=== PATIENT | male | born 1965 | race Caucasian/White ===

== ENCOUNTER → 2024-01-01 | Outpatient (CLI) | payer BC ==
[2024-01-01 13:34] LABS: Partial Thromboplastin Time 23.7 sec (22.0-30.0)
[2024-01-01 16:20] LABS: INR 0.9 (<1.2); Prothrombin Time 10.1 sec (10.0-12.5)
[2024-01-01 17:05] LABS: ALT 13 U/L (10-49); AST 14 U/L (14-35); Albumin 4.7 g/dL (3.8-4.9); Albumin/Globulin Ratio 2.35 Ratio (1.60-3.17); Alkaline Phosphatase 73 U/L (41-126); BUN/Creat Ratio 25.85 Ratio (12.00-20.00); Blood Urea Nitrogen 33.6 mg/dL (9.0-27.0); Calcium 10.1 mg/dL (8.7-10.3); Carbon Dioxide 26.3 mmol/L (21.6-31.8); Chloride 104 mmol/L (96-109); Glucose 99 mg/dL (70-110); Potassium 4.7 mmol/L (3.5-5.5); Sodium 140 mmol/L (135-145); Total Bilirubin 0.4 mg/dL (0.3-1.2); Total Protein 6.7 g/dL (6.2-8.2)
== END | disposition home or self-care (01) ==
LOC: LABPAT 11:31
PROVIDERS: ATTEND Orthopaedic Surgery
DX: Z01.818 Encounter for other preprocedural examination (principal); Z22.322 Carrier or suspected carrier of Methicillin resistant Staphylococcus aureus
CPT/HCPCS: 80053; 83036; 85027; 85610; 85730; 87070; 93005

== ENCOUNTER → 2024-01-01 | Outpatient (CLI) | payer BC ==
--- NOTE | 2024-01-04 11:56 | CT ---
EXAMINATION TYPE: CT left knee - CHRISTIANNE Protocol CT DLP: 904 mGycm, Automated exposure control for dose reduction was used. DATE OF EXAM: 01/01/2024 11:27 AM COMPARISON: None CLINICAL INDICATION:Male, 58 years old with history of [id number] UNILATERAL PRIMARY OSTEOARTHRITIS, LEFT KNEE; PHH, left christianne knee TECHNIQUE: Axial images were obtained of the CT left knee - CHRISTIANNE Protocol, Additional coronal and sag ittal reformatted images and soft tissue and bone window were obtained for review. Contrast used: mL of , (None if empty) Oral contrast used: (None if empty) FINDINGS: The visualized portion of the hips demonstrate mild osteoarthrosis changes with osteophyte formation of the acetabulum. No acute intrapelvic process. The bony structures of the pelvis are intact. The visualized knee demonstrates osteophyte formation of the tibial plateau, the patella and femoral condyles. There is a large joint effusion present. There is joint space narrowing and subchondral sc lerosis and subchondral cystic change most pronounced medially. No evidence of fracture. Visualized ankle demonstrates multifocal osteoarthrosis changes with osteophyte formation and joint s pace narrowing. No evidence of fractures. Fat-containing inguinal hernias bilaterally. IMPRESSION: End-stage osteoarthrosis changes of the left knee.
== END | disposition home or self-care (01) ==
LOC: RADCTMAIN 10:41
PROVIDERS: ATTEND Orthopaedic Surgery
DX: M17.12 Unilateral primary osteoarthritis, left knee (principal); M25.462 Effusion, left knee

== ENCOUNTER 2024-01-24 11:35 | Day surgery (SDC) | payer BC ==
[~2024-01-24 11:35] MED LIST: TRANEXAMIC 1,000 MG/100ML-NACL 1,000 MG in SALINE 1 100ML.BAG IV PRN; TRANEXAMIC 1,000 MG/100ML-NACL 1,000 MG in SALINE 1 100ML.BAG IVPB PRN
[2024-01-24] MEDS ORDERED: LIDOCAINE 1% (10MG/ML) FOR IV START INTRADERMA PRN (12:07)
[2024-01-24] MEDS: ACETAMINOPHEN TAB 500 MG TAB PO PRN (12:45)
[2024-01-24] MEDS: oxyCODONE ER 10 MG TAB.ER.12H PO PRN (12:45)
[2024-01-24] MEDS: DOCUSATE 100 MG CAP PO PRN (12:45)
[2024-01-24] MEDS: MIDAZOLAM 2 MG/2 ML VIAL IVP ONE (12:48)
[2024-01-24 12:50] LABS: Basophils % (A) 0 %; Eosinophils # (A) 0.1 k/uL (0-0.7); Eosinophils % (A) 1 %; HCT 44.6 % (39.0-53.0); HGB 13.9 gm/dL (13.0-17.5); Lymphocytes # (A) 1.1 k/uL (1.0-4.8); Lymphocytes % (A) 13 %; MCH 30.6 pg (25.0-35.0); MCHC 31.2 g/dL (31.0-37.0); MCV 98.1 fL (80.0-100.0); Mean Platelet Volume 7.7; Monocytes # (A) 0.4 k/uL (0-1.0); Monocytes % (A) 4 %; Neutrophils # (A) 7.3 k/uL (1.3-7.7); Neutrophils % (A) 80 %; Platelet Count 352 k/uL (150-450); RBC 4.54 m/uL (4.30-5.90); RDW 13.1 % (11.5-15.5); WBC 9.1 k/uL (3.8-10.6)
[2024-01-24] MEDS: LACTATED RINGERS 1,000 ML IV SCH (12:52)
[2024-01-24] MEDS: FAMOTIDINE 20 MG/2 ML VIAL IVP PRN (12:53)
[2024-01-24] MEDS: ONDANSETRON 4 MG/2 ML VIAL IVP PRN (12:54)
[2024-01-24] MEDS: DEXAMETHASONE SOD PHOSPHATE 10 MG/ML 1 ML VIAL IV PRN (12:54)
[2024-01-24] MEDS: KETOROLAC 15 MG/ML 1 ML VIAL IVP PRN (12:54)
[2024-01-24] MEDS ORDERED: PROPOFOL 10 MG/ML 20 ML VIAL IV ONE (13:05)
[2024-01-24] MEDS ORDERED: NEOSTIGMINE 1 MG/ML 10 ML VIAL ONE (13:05)
[2024-01-24] MEDS ORDERED: ROCURONIUM 10 MG/ML (5 ML VIAL) IV ONE (13:05)
[2024-01-24] MEDS ORDERED: HYDROmorphone (PF) 1 MG/ML ONE (13:05)
[2024-01-24] MEDS ORDERED: TRANEXAMIC 1,000 MG/100ML-NACL PREMIX BAG ONE (13:05)
[2024-01-24] MEDS ORDERED: GLYCOPYRROLATE 0.2 MG/ML 2 ML VIAL ONE (13:05)
[2024-01-24] MEDS ORDERED: SUCCINYLCHOLINE CHLORIDE 200 MG/10 ML VIAL IV ONE (13:05)
[2024-01-24] MEDS ORDERED: fentaNYL (PF) 50 MCG/ML 2 ML AMP ONE (13:05)
[2024-01-24] MEDS ORDERED: PHENYLEPHRINE-0.9% NACL SYG 1,000 MCG/10 ML SYRINGE ONE (13:05)
[2024-01-24] MEDS ORDERED: MIDAZOLAM 2 MG/2 ML VIAL ONE (13:05)
[2024-01-24] MEDS ORDERED: LIDOCAINE 1% INJ 10MG/ML (20 ML MDV) ONE (13:05)
[2024-01-24] MEDS ORDERED: ROPIVACAINE 5 MG/ML 30 ML VIAL ONE (13:05)
[2024-01-24] MEDS ORDERED: DEXAMETHASONE SOD PHOSPHATE 4 MG/ML 1 ML VIAL ONE (13:05)
[2024-01-24] MEDS: ceFAZolin 3 GM in SODIUM CHLORIDE 0.9% 100 ML IVPB PRN (13:07)
[2024-01-24] MEDS: ROPIVACAINE/EPI/CLONIDINE/KET 50 ML SYRINGE MISCELLANE PRN (13:35)
[2024-01-24] MEDS: LACTATED RINGERS 1,000 ML IV ONE (14:24)
[2024-01-24] MEDS: VANCOMYCIN 1,000 MG VIAL MISCELLANE ONE (14:32)
--- NOTE | 2024-01-24 15:30 | P.OP ---
Date of Procedure: 01/24/24 Preoperative Diagnosis: severe left knee osteoarthritis Postoperative Diagnosis: same Procedure(s) Performed: 1. Left total knee arthroplasty 2. Computer assisted musculoskeletal navigation using CT/MRI images 3. Application of negative pressure incision over wound VAC left knee, less than 50 cm, incision 15 cm Implants: 1. [place] [employer] CR Femur Size #5 2. Alejandra [employer]lon [place] Tibial Base Size #5 3. Alejandra Triathlon CS poly Size #10 4. Alejandra Triathlon all poly patella, Size #35 Anesthesia: SILVIANO, regional Surgeon: Wai Arriaza Teacher Of The Hearing Impaired #1: Jovany Woody Estimated Blood Loss (ml): 100 IV fluids (ml): 800 Pathology: none sent Condition: stable Disposition: PACU Indications for Procedure: I met with the patient preoperatively in the office setting and discussed treatment of their symptomatic knee arthritis. They failed a long course of nonsurgical treatment and elected to proceed with an elective total knee replacement. I discussed the potential risks and complications at length and gave them ample time to ask questions. Risks discussed included: risks from anesthesia, superficial site surgical infection, acute and/or chronic periprosthetic joint infection, delayed wound healing, drainage, wound necrosis, instability, stiffness, stiffness requiring manipulation and/or revision surgery, damage to local blood vessels or nerves, aseptic loosening of the implants, extensor mechanism issues including disruption, patellar maltracking, avascular necrosis etc., continued or worsened knee pain, generalized dissatisfaction with surgical outcome, need for revision surgery, an inability to regain preinjury level of function, DVT, PE, other medical complications, and possibly loss of life or limb. The patient voiced their understanding that while these are the most common complications other less common complications are possible. They provided both their verbal and written consent to go forward with surgery. Operative Findings: severe tricompartmental osteoarthritis, relatively poor bone quality, large clear blood-tinged effusion Description of Procedure: The patient was identified in preoperative holding and the correct operative extremity was verified and marked with a marker. I reviewed the consent form with the patient at length. All of their questions were answered. The patient was given a block by anesthesia. They were then brought back to the operating room. They were transferred onto the operating room table where a general anesthetic, preoperative antibiotics, and tranexamic acid were administered by anesthesia. A tourniquet was applied to the proximal aspect of the operative extremity. The contralateral extremity was padded under the heel and secured to the operating room table with a nonsterile blue towel and tape. The ipsilateral arm was carefully draped across the patient's chest and secured with a pillow and foam. A post was applied over the lateral aspect of the ipsilateral thigh and a bolster was placed under the ipsilateral foot. I verified that the operative extremity was stable and the knee was flexed to 90. The operative extremity was then placed in a leg carrasquillo, nonsterile drapes were applied, and the extremity was prepped and draped sterilely in the standard sterile fashion. Prior to starting surgery timeout was performed identifying the correct patient, operative extremity, and procedure. The leg was then elevated, exsanguinated with an Esmarch bandage, and the tourniquet was inflated. An anterior midline incision was made sharply with a scalpel. Once I had dissected deep to the superficial fascial layer medial and lateral flaps were elevated. A medial parapatellar arthrotomy was created. Upon opening the knee joint there were diffuse arthritic changes in all 3 compartments. The anterior horn of the medial meniscus were sharply released and a medial release was performed around the posterior medial corner of the knee to facilitate retractor placement. The fat pad was excised with electrocautery. The patella was found to be severely arthritic and a provisional cut was made with a sagittal saw to facilitate mobilization of the extensor mechanism during the procedure. Remnants of the ACL and PCL were then excised from the notch. 4 mm pins were then placed within the incision in the medial distal femur and proximal tibia. Arrays were applied to the pins and I verified they were completely tightened. The knee was then registered with the LoggedIn robot and manipulations in implant position were made to balance the knee and opitmize implant position. Using the Daniel robotic saw all cuts were made in accordance with our plan. After all bony fragments had been removed the cuts were verified with the planar probe. The tibia was then subluxed forward and sized. The knee was brought into flexion and a lamina rework operator was placed to allow removal of the meniscal remnants both medially and laterally as well as posterior osteophytes. Local anesthetic was then infiltrated around the joint capsule. Trial implants were then placed within the knee. Range of motion and collateral ligament tension was then evaluated. Adjustments in implant size and position were then made accordingly. Once the knee was felt to be appropriately balanced the Daniel pins were removed. The patella was then recut, sized, and punched. A trial patellar button was then placed. With the trial components in place, the patella tracked midline. The femur was then drilled and the trial component removed. The trial tibial component was then appropriately rotated, pinned, and prepared for the keel. All trial components were then removed from the knee. The knee was thoroughly irrigated with pulsatile lavage. Cement was prepared via vacuum mixing in a bowl on the back table. I then hand pressurized cement into the femur and tibia and placed the implants beginning with the tibial base tray and poly liner, femoral component, and finally the patellar button. All extruded cement was removed including from the pin sites. Once the cement had hardened the knee was evaluated one final time with the final polyethylene liner in place. The knee had full extension and flexion and felt stable to varus and valgus stress throughout the arc of motion. The tourniquet was released and with the tourniquet down the patella tracked midline. All bleeders were controlled with electrocautery. The knee was then soaked for 3 minutes with a dilute Betadine soak. The knee was thoroughly irrigated using 3 L of sterile saline and pulsat ile lavage. A deep drain was placed. The extensor mechanism was then reapproximated using pop off Vicryl sutures followed by a running barbed suture. The knee was then closed in layers with a 0 strata fix for the deep fascial layer, 2-0 strata fix for the superficial subcutaneous layer and Monocryl and Steri-Strips for the skin. An incisional wound VAC was placed over the closed incision to help lower the risk of delayed wound healing and surgical site infection. A drain sponge was also applied. After connecting the wound VAC to it's power source, there was an excellent seal. I verified that all instrument, sponge, and sharp counts were correct. The patient was then transferred off the operating room table, extubated, and brought to recovery having tolerated the procedure well. Alan Woody PA-C was required as a skilled certified physician assistant due to the complexity of surgery for patient positioning, draping, exposure, retraction, closure of wound, and application of dressing. PLAN: The patient can weight-bear as tolerated on the operative extremity. DVT prophylaxis with aspirin 81 mg twice a day based on preoperative risk stratification. The patient is going to be discharged home on doxycycline 100 mg twice a day until his incision heals. Follow-up in the office in 2 weeks for wound check and x-rays of the knee including an AP and lateral.
[2024-01-24] MEDS ORDERED: NALOXONE 0.4 MG/ML 1 ML VIAL IV PRN (15:32)
[2024-01-24] MEDS ORDERED: ONDANSETRON 4 MG/2 ML VIAL IVP PRN (15:32)
[2024-01-24] MEDS ORDERED: HYDROcodone/APAP 5-325MG 1 EACH TAB PO PRN (15:32)
[2024-01-24] MEDS ORDERED: bisacodyL 10 MG SUPP RECTAL PRN (15:32)
[2024-01-24] MEDS ORDERED: MAGNESIUM HYDROXIDE 2,400 MG/30 ML CUP PO PRN (15:32)
[2024-01-24] MEDS ORDERED: NA PHOS,M-B/NA PHOS,DI-BA 133 ML ENEMA RECTAL PRN (15:32)
[2024-01-24] MEDS: HYDROmorphone 0.5 MG/0.5 ML SYRINGE IVP PRN (15:51)
--- NOTE | 2024-01-24 16:29 | XR ---
EXAMINATION TYPE: XR knee limited LT DATE OF EXAM: 01/24/2024 COMPARISON: None HISTORY: Post knee replacement TECHNIQUE: 2 view left knee FINDINGS: There is placement of the left knee prosthesis with tibial and femoral components. Postsurg ical soft tissue changes are evident. No acute fractures are evident. IMPRESSION: 1. No acute fracture post knee replacement.
[2024-01-24] MEDS: SODIUM CHLORIDE 0.9% 1,000 ML IV SCH (17:26)
[2024-01-24] MEDS: HYDROcodone/APAP 10-325MG 1 EACH TAB PO PRN (18:33)
[2024-01-24] MEDS: HYDROmorphone 1 MG/ML 1 ML SYRINGE IVP PRN (19:43)
[2024-01-24] MEDS: ASPIRIN 81 MG PO SCH (21:27)
[2024-01-24] MEDS: SENNOSIDES-DOCUSATE SODIUM 1 EACH TAB PO SCH (21:28)
[2024-01-25] MEDS: oxyCODONE-APAP 10-325MG 1 EACH TAB PO PRN (01:05)
[2024-01-25] MEDS: hydrOXYzine pamoate 25 MG CAP PO PRN (02:11)
[2024-01-25] MEDS ORDERED: ACETAMINOPHEN TAB 500 MG TAB PO PRN (04:37)
--- NOTE | 2024-01-25 04:40 | P.CONS ---
History of Present Illness - Reason for Consult Consult date: 01/25/24 Postoperative medical management - Chief Complaint Left knee pain - History of Present Illness 58-year-old male with hypertension Patient coming in for scheduled left total knee replacement due to advanced arthritis limiting activities of daily living patient tolerated procedure well no observed immediate postoperative complications denies any chest pain trouble breathing nausea vomiting fever chills. Patient tolerated procedure well patient was able to ambulate with assistance patient has passed urine with no problems or difficulties. Patient tolerating p.o. intake. Currently reports t hat his pain not well-controlled and he is asking to switch his Tow[place]'s to Percocet maximum dose which she took in the past. Patient denies tobacco smoking illicit drugs or heavy alcohol review of systems Pertinent positives as noted in HPI. All other systems were reviewed and are negative on exam Constitutional: No acute distress, conversant, pleasant Eyes: Anicteric sclerae, moist conjunctiva, Pupils equal round reactive to light ENMT: NC/AT Oropharynx clear, no erythema, or exudates Neck: Supple, no masses, or JVD No carotid bruits No thyromegaly Lungs: Clear to auscultation Clear to percussion Normal respiratory effort, no accessory muscle use Cardiovascular: Heart regular in rate and rhythm, No murmurs, gallops, or rubs No peripheral edema Abdominal: Soft Nontender, no guarding, rebound or rigidity Abdomen moving with respiration Normoactive bowel sounds Extremities: No digital cyanosis No clubbing Pedal pulses intact and symmetrical Radial pulses intact and symmetrical No calf tenderness Psychiatric: Alert and oriented to person, place and time Appropriate affect fair judgement Neuro Muscles Strength 5/5 in all 4 extremities with limitations of exam of left lower extremity due to postop Sensation to light touch grossly present throughout Cranial nerves II-XII grossly intact Past Medical History Past Medical History: Hypertension, Osteoarthritis (OA) Additional Past Medical History / Comment(s): RLS History of Any Multi-Drug Resistant Organisms: None Reported Past Surgical History: Hernia Repair, Orthopedic Surgery Additional Past Surgical History / Comment(s): umbilical hernia repair, right elbow surg. Past Anesthesia/Blood Transfusion Reactions: Postoperative Nausea & Vomiting (PONV) Past Psychological History: Anxiety, Depression Smoking Status: Former smoker Past Alcohol Use History: None Reported Additional Past Alcohol Use History / Comment(s): quit smoking 25-30 yrs. ago, smoked 9 yrs. 1ppd Past Drug Use History: None Reported - Past Family History Mother Family Medical History: No Reported History Medications and Allergies Home Medications Medication Instructions Recorded Confirmed Type Acetaminophen [Tylenol Extra 500 mg PO Q4H PRN 01/22/24 01/22/24 History Strength] Diclofenac Sodium [Voltaren] 75 mg PO BID 01/22/24 01/22/24 History Ibuprofen [Motrin Ib] 200 - 400 mg PO Q6H PRN 01/22/24 01/22/24 History Irbesartan/Hydrochlorothiazide 1 each PO DAILY 01/22/24 01/22/24 History [Irbesartan-Hctz 300-12.5 mg Tb] Magnesium Gluconate [Magonate] 250 mg PO HS 01/22/24 01/22/24 History Potassium Gluconate 99 mg PO DAILY 01/22/24 01/22/24 History Venlafaxine HCl [Effexor XR] 150 mg PO DAILY 01/22/24 01/22/24 History allopurinoL [Zyloprim] 300 mg PO DAILY 01/22/24 01/22/24 History diphenhydrAMINE [Benadryl] 50 mg PO HS PRN 01/22/24 01/22/24 History rOPINIRole HCL [Requip] 0.25 mg PO HS 01/22/24 01/22/24 History tadalafiL [Cialis] 20 mg PO DIRECTED PRN 01/22/24 01/22/24 History Aspirin 81 mg PO BID #60 tab 01/24/24 Rx Diclofenac Sodium [Voltaren] 75 mg PO BID #60 tab 01/24/24 Rx Docusate [Colace] 100 mg PO BID #28 capsule 01/24/24 Rx Doxycycline Monohydrate 100 mg PO BID #28 cap 01/24/24 Rx Omeprazole 40 mg PO DAILY #30 cap 01/24/24 Rx Allergies Allergy/AdvReac Type Severity Reaction Status Date / Time erythromycin base Allergy Rash/Hives Verified 01/24/24 12:07 tetracycline Allergy Rash/Hives Verified 01/24/24 12:07 Physical Exam Vitals: Vital Signs Temp Pulse Pulse Resp BP Pulse Ox 01/25/24 02:44 97.5 F L 93 20 116/60 97 01/24/24 19:01 97.5 F L 103 H 20 158/83 96 01/24/24 17:18 99 18 135/67 93 L 01/24/24 16:34 95 18 116/58 99 01/24/24 16:25 91 18 128/61 95 01/24/24 16:09 96 16 132/60 96 01/24/24 15:53 98 16 124/58 98 01/24/24 15:37 96 14 125/61 95 01/24/24 15:21 97.0 F L 95 16 126/57 97 01/24/24 12:57 99 16 134/62 96 01/24/24 12:19 97.0 F L 115 H 16 161/71 98 Intake and Output 01/24/24 01/24/24 01/25/24 14:59 22:59 06:59 Intake Total 1400 300 750 Output Total 100 Balance 1400 200 750 Intake: IV 1400 300 Oral 750 Output: Estimated Blood Loss 100 Other: # Voids 0 3 Weight 117 kg 117 kg Results CBC & Chem 7: 01/24/24 12:36 Assessment and Plan Assessment: Hypertension controlled Continue home blood pressure medications Left total knee arthroplasty postoperative day 1 Pain control DVT prophylaxis per primary team Patient overall stable from medical standpoint Check CBC and BMP in the morning Thank you for this consultation
--- NOTE | 2024-01-25 07:45 | P.DS ---
Providers Date of admission: Saturday01/24/2024 Attending physician: Wai Arriaza Consults: 01/24/24 15:32 Consult Physician Routine Consulting Provider: Della Colin Consult Reason/Comments: post op medical management Do you want consulting provider notified?: Yes Primary care physician: Stated None Hospital Course: The patient is a very pleasant 58-year-old male who is admitted under my care and was taken to the operating room yesterday for a total knee replacement. Following an uncomplicated surgery the patient was transferred to the orthopedic floor. He was transitioned from IV to oral pain medications. He was given 2 doses of postoperative antibiotics. He was started on aspirin for DVT prophylaxis. Internal medicine was consulted for perioperative medical management. I saw the patient on postoperative day #1 and he was doing well. The incisional wound VAC over his knee was intact with good seal. He had mild swelling throughout the knee. He was able to actively plantarflex and dorsiflex his ankle and his toes. He worked with physical therapy. He did well and requested to be discharged home on postoperative day #1. Plan - Discharge Summary Discharge Rx Participant: Yes New Discharge Prescriptions: New Omeprazole 40 mg PO DAILY #30 cap oxyCODONE HCL/ACETAMINOPHEN [Percocet 10-325 mg] 1 tab PO Q6HR PRN #32 tab PRN Reason: Pain Aspirin 81 mg PO BID #60 tab Diclofenac Sodium [Voltaren] 75 mg PO BID #60 tab Doxycycline Monohydrate 100 mg PO BID #28 cap Docusate [Colace] 100 mg PO BID #28 capsule No Action rOPINIRole HCL [Requip] 0.25 mg PO HS diphenhydrAMINE [Benadryl] 50 mg PO HS PRN PRN Reason: sleeping tadalafiL [Cialis] 20 mg PO DIRECTED PRN PRN Reason: E.D. Venlafaxine HCl [Effexor XR] 150 mg PO DAILY Potassium Gluconate 99 mg PO DAILY Irbesartan/Hydrochlorothiazide [Irbesartan-Hctz 300-12.5 mg Tb] 1 each PO DAILY Ibuprofen [Motrin Ib] 200 - 400 mg PO Q6H PRN PRN Reason: Pain Acetaminophen [Tylenol Extra Strength] 500 mg PO Q4H PRN PRN Reason: Pain Magnesium Gluconate [Magonate] 250 mg PO HS allopurinoL [Zyloprim] 300 mg PO DAILY Diclofenac Sodium [Voltaren] 75 mg PO BID Discharge Medication List Acetaminophen [Tylenol Extra Strength] 500 mg PO Q4H PRN 01/22/24 [History] Diclofenac Sodium [Voltaren] 75 mg PO BID 01/22/24 [History] Ibuprofen [Motrin Ib] 200 - 400 mg PO Q6H PRN 01/22/24 [History] Irbesartan/Hydrochlorothiazide [Irbesartan-Hctz 300-12.5 mg Tb] 1 each PO DAILY 01/22/24 [History] Magnesium Gluconate [Magonate] 250 mg PO HS 01/22/24 [History] Potassium Gluconate 99 mg PO DAILY 01/22/24 [History] Venlafaxine HCl [Effexor XR] 150 mg PO DAILY 01/22/24 [History] allopurinoL [Zyloprim] 300 mg PO DAILY 01/22/24 [History] diphenhydrAMINE [Benadryl] 50 mg PO HS PRN 01/22/24 [History] rOPINIRole HCL [Requip] 0.25 mg PO HS 01/22/24 [History] tadalafiL [Cialis] 20 mg PO DIRECTED PRN 01/22/24 [History] Aspirin 81 mg PO BID #60 tab 01/24/24 [Rx] Diclofenac Sodium [Voltaren] 75 mg PO BID #60 tab 01/24/24 [Rx] Docusate [Colace] 100 mg PO BID #28 capsule 01/24/24 [Rx] Doxycycline Monohydrate 100 mg PO BID #28 cap 01/24/24 [Rx] Omeprazole 40 mg PO DAILY #30 cap 01/24/24 [Rx] oxyCODONE HCL/ACETAMINOPHEN [Percocet 10-325 mg] 1 tab PO Q6HR PRN #32 tab 01/25/24 [Rx] Follow up Appointment(s)/Referral(s): Wai Arriaza MD [Medical Doctor] - 2 Weeks Activity/Diet/Wound Care/Special Instructions: 1. Weight-bear as tolerated on your operative extremity unless instructed otherwise. Use a walker or other assistive device to ambulate. 2. Leave surgical dressing in place. If your dressing becomes saturated with blood, there is drainage, or the dressing becomes loose please contact the office. 3. It is okay to shower with your surgical dressing, but do not submerge in water (no hot tubs, bath's, swimming etc.) 4. Make sure to take her blood clot prevention medication as prescribed (aspirin, Eliquis, Xarelto, and Plavix are commonly prescribed medications for blood clot prevention) 5. While taking [place] or Percocet for pain make sure you're taking a stool softener (Colace) and drink lots of water. 6. Keep all follow-up appointments as scheduled. You will usually be seen in 1-2 weeks following surgery. 7. Please contact the office with any questions or concerns [phone] Discharge Disposition: HOME WITH HOME HEALTH SERVICES
[2024-01-25 08:13] VITALS: BP 146/84; PULSE 74; RESP 18; TEMP 98.1
[2024-01-25] MEDS: LOSARTAN 50 MG TAB PO SCH (09:13)
[2024-01-25] MEDS: VENLAFAXINE HCL ER 150 MG CAP PO SCH (09:14)
[2024-01-25] MEDS: MELOXICAM 7.5 MG TAB PO SCH (09:14)
[2024-01-25] MEDS: allopurinoL 300 MG TAB PO SCH (09:16)
[2024-01-25 09:24] LABS: Basophils % (A) 0 %; Eosinophils % (A) 0 %; HCT 37.9 % (39.0-53.0); HGB 11.9 gm/dL (13.0-17.5); Lymphocytes # (A) 0.6 k/uL (1.0-4.8); Lymphocytes % (A) 4 %; MCH 31.3 pg (25.0-35.0); MCHC 31.3 g/dL (31.0-37.0); Mean Platelet Volume 8.5; Monocytes # (A) 0.6 k/uL (0-1.0); Monocytes % (A) 4 %; Neutrophils # (A) 13.7 k/uL (1.3-7.7); Neutrophils % (A) 92 %; Platelet Count 313 k/uL (150-450); RBC 3.79 m/uL (4.30-5.90); RDW 13.3 % (11.5-15.5)
[2024-01-25 09:54] LABS: African American GFR (CKD) 80 (>60 ml/min/1.73 sqM); Anion Gap 11 mmol/L; Blood Urea Nitrogen 33 mg/dL (9-20); Calcium 9.3 mg/dL (8.4-10.2); Carbon Dioxide 22 mmol/L (22-30); Chloride 104 mmol/L (98-107); Glucose 182 mg/dL (74-99); Non-African American GFR(CKD) 69 (>60 ml/min/1.73 sqM); Potassium 4.4 mmol/L (3.5-5.1); Sodium 137 mmol/L (137-145)
[2024-01-25] MEDS: hydroCHLOROthiazide 12.5 MG CAP PO SCH (10:55)
--- NOTE | 2024-01-25 13:59 | P.PN ---
Subjective Progress Note Date: 01/25/24 Hospital course: Patient is a very pleasant 58-year-old male with a past medical history of hypertension, umbilical hernia status postrepair, anxiety and osteoarthritis. He is currently admitted under orthopedic surgery team status post left total knee arthroplasty secondary to severe left knee osteoarthritis. Surgical procedure was performed by Dr. Arriaza. We were consulted for medical management throughout hospitalization. Physical exam: Vital signs reviewed and stable. General: Nontoxic, no distress and appears stated age. Derm: Skin warm and dry, normal coloration for ethnicity. Head: Atraumatic, normocephalic and symmetric. Eyes: EOMs intact, no lid lag, and anicteric sclera Mouth: no lip lesions, mucus membranes moist Cardiovascular: regular rate and rhythm with normal S1S2, no murmur, positive posterior tibial pulses bilaterally, and cap refill < 2 seconds. Lungs: Respirations even, regular, and unlabored on room air. Lungs CTA bilaterally, no rhonchi, no rales, no wheezing, and no accessory muscle usage. Abdominal: soft, nontender to palpation, no guarding, no appreciable organomegaly Ext: No gross muscle atrophy, no edema, no contractures. Movement and sensation intact. Postoperative dressing/Celestino wrap in place to left knee. Neuro: Speech clear, face symmetrical and CN II-XII grossly intact with no noted focal neuro deficits Psych: Alert and oriented to person, place, time, and situation. Appropriate and pleasant affect. Assessment and Plan of Care: Acute postoperative blood loss anemia Hemoglobin 11.9 with preoperative hemoglobin of 13.9. This is a stable and expected finding. No need for transfusion or further interventions at this time. Status post left total knee arthroplasty Management per primary admitting orthopedic surgery team including DVT prophylaxis, pain management, wound/dressing management, weightbearing, and PT/OT. Patient currently on DVT prophylaxis with aspirin 81 mg twice daily. Hypertension Patient to continue daily medication regimen with irbesartan/hydrochlorothiazide 300/12.5 mg tablets daily. Anxiety Continue Effexor 150 mg daily. Data reviewed: Postoperative labs reviewed. CBC showing postoperative leukocytosis with WBC count of 15.0 and acute postoperative blood loss anemia with hemoglobin of 11.9 and preoperative hemoglobin of 13.9. BMP was unremarkable with the exception of mild prerenal azotemia with BUN of 33. Magnesium normal findings at 2.0. Vital signs reviewed and stable. Blood pressure 146/84, heart rate 74, respiratory rate 18, temp 98.1 F, and SpO2 of 97% on room air. Patient cleared from medical perspective for discharge. Thank you for allowing us to participate in the care of this pleasant patient. Do not hesitate to contact us with questions. Someone can be reached from the [facility] hospitalist group all hours of the day at [phone] or via perfect serve. Patient was seen independently by Nurse Pracitioner. This document was prepared using [employer] dictation software. Please allow for errors in admission liaison, while rare they do occur. I reviewed the documentation as provided by the REKHA above, who is the original author of this note. I agree with the documented assessment and plan, with the following changes: none Objective - Vital Signs Vital signs: Vital Signs Temp 98.1 F 01/25/24 08:00 Pulse 74 01/25/24 08:00 Resp 18 01/25/24 08:00 BP 146/84 01/25/24 08:00 Pulse Ox 97 01/25/24 08:00 FiO2 Intake & Output 01/24/24 01/25/24 01/25/24 18:59 06:59 18:59 Intake Total 1700 750 Output Total 100 Balance 1600 750 Weight 117 kg Intake: IV 1700 Oral 750 Output: Estimated Blood Loss 100 Other: # Voids 0 3 - Labs CBC & Chem 7: 01/25/24 06:51 01/25/24 09:00
--- NOTE | 2024-01-26 10:33 | P.ANPRN ---
Procedure Note - Anesthesia - Nerve Block Performed Left Adductor Canal Single Time Out Performed: Yes Date of Procedure: 01/24/24 Procedure Start Time: 08:47 Procedure Stop Time: 08:50 Location of Patient: PreOp Indication: Acute Post-Operative Pain, Requested by Surgeon Sedation Type: Sedate with meaningful contact maintained Preparation: Sterile Prep Position: Supine Needle Types: Pajunk Needle Gauge: 21 Ultrasound used to visualize needle placement: Yes Ultrasound used to observe medication spread: Yes Blood Aspirated: No Pain Paresthesia on Injection Noted: No Resistance on Injection: Normal Image Stored and Saved: Yes Events: Uneventful and Well Tolerated (ropivacaine 0.5% 20 cc plus dexamethasone 4 mg)
--- NOTE | 2024-01-26 10:34 | P.ANPRN ---
Procedure Note - Anesthesia - Nerve Block Performed Left iPack Single Time Out Performed: Yes Date of Procedure: 01/24/24 Procedure Start Time: 08:51 Procedure Stop Time: 08:53 Location of Patient: PreOp Indication: Acute Post-Operative Pain, Requested by Surgeon Sedation Type: Sedate with meaningful contact maintained Preparation: Sterile Prep Position: Supine Needle Types: Pajunk Needle Gauge: 21 Ultrasound used to visualize needle placement: Yes Ultrasound used to observe medication spread: Yes Blood Aspirated: No Pain Paresthesia on Injection Noted: No Resistance on Injection: Normal Image Stored and Saved: Yes Events: Uneventful and Well Tolerated (Ropivacaine 0.5% 25 cc plus dexamethasone 4 mg)
== END 2024-01-25 12:00 | disposition home health service (06) ==
LOC: OR 11:35 → 4SSUR 15:13 → OR 01-25 12:00
PROVIDERS: ATTEND Orthopaedic Surgery
DX: M17.12 Unilateral primary osteoarthritis, left knee (principal); M25.462 Effusion, left knee; G89.18 Other acute postprocedural pain; M25.762 Osteophyte, left knee; Z88.1 Allergy status to other antibiotic agents; Z79.899 Other long term (current) drug therapy; Z87.891 Personal history of nicotine dependence
CPT/HCPCS: 0055T; 27447; 64447; 64999; 80048; 83735; 85025

== ENCOUNTER → 2024-08-12 | Outpatient (CLI) | payer BC ==
--- NOTE | 2024-08-12 17:15 | CT ---
EXAMINATION TYPE: CT right knee - JAMI Protocol CT DLP: 1422 mGycm, Automated exposure control for dose reduction was used. DATE OF EXAM: 08/12/2024 4:47 PM COMPARISON: None CLINICAL INDICATION: Male, 59 years old with history of M17.11 OSTEOARTHRITIS RIGHT KNEE; PHH, Arthri tis, pre-surgical. TECHNIQUE: Axial images were obtained of the CT right knee - JAMI Protocol, Additional coronal and sa gittal reformatted images and soft tissue and bone window were obtained for review. . Contrast used: mL of , (None if empty) Oral contrast used: (None if empty) FINDINGS: The visualized portion of the hips demonstrate mild osteoarthrosis changes with osteophyte formation of the acetabulum. No acute intrapelvic process. The bony structures of the pelvis are inta ct. The visualized knee demonstrates osteophyte formation of the tibial plateau, the patella and femoral condyles. There is joint space narrowing and subchondral sclerosis. No evidence of fracture. Visualized ankle demonstrates multifocal osteoarthrosis changes with osteophyte formation and mild tabby int space narrowing. No evidence of fractures. Total knee arthroplasty in the left. Bilateral fat-containing inguinal hernias. Scattered colonic diverticula. The appendix is normal. Sca ttered atherosclerosis of the arterial vasculature. IMPRESSION: End-stage osteoarthrosis changes of the right knee. [facility], , 08/12/2024 5:12 PM
== END | disposition home or self-care (01) ==
LOC: RADCTMAIN 14:43
PROVIDERS: ATTEND Orthopaedic Surgery
DX: M17.11 Unilateral primary osteoarthritis, right knee (principal)

== ENCOUNTER → 2024-09-10 | Outpatient (CLI) | payer BC ==
[2024-09-10 14:28] LABS: Partial Thromboplastin Time 23.2 sec (22.0-30.0)
[2024-09-10 15:34] LABS: INR 0.9 (<1.2); Prothrombin Time 9.9 sec (10.0-12.5)
[2024-09-10 16:00] LABS: HCT 41.4 % (39.6-50.0); HGB 13.4 g/dL (13.0-17.0); MCHC 32.4 g/dL (32.0-37.0); MCV 98.8 FL (80.0-97.0); Mean Platelet Volume 9.8 FL (9.5-12.2); NRBC Per 100 WBC 0 X 10*3/uL (0.00-0.01); Platelet Count 361 X 10*3/uL (140-440); RBC 4.19 X 10*6/uL (4.40-5.60); RDW 13.8 % (11.5-14.5); WBC 10.14 X 10*3/uL (4.50-10.00)
[2024-09-10 21:05] LABS: ALT 14 U/L (10-49); AST 13 U/L (14-35); Albumin 4.6 g/dL (3.8-4.9); Alkaline Phosphatase 77 U/L (41-126); BUN/Creat Ratio 29.17 Ratio (12.00-20.00); Calcium 10.2 mg/dL (8.7-10.3); Carbon Dioxide 20.9 mmol/L (21.6-31.8); Chloride 106 mmol/L (96-109); Globulin 2.3 g/dL (1.6-3.3); Glucose 130 mg/dL (70-110); Potassium 4.8 mmol/L (3.5-5.5); Sodium 140 mmol/L (135-145); Total Bilirubin 0.3 mg/dL (0.3-1.2); Total Protein 6.9 g/dL (6.2-8.2)
== END | disposition home or self-care (01) ==
LOC: LABWHC1 12:45
PROVIDERS: ATTEND Orthopaedic Surgery
DX: Z01.818 Encounter for other preprocedural examination (principal); M17.11 Unilateral primary osteoarthritis, right knee; Z22.322 Carrier or suspected carrier of Methicillin resistant Staphylococcus aureus
CPT/HCPCS: 36415; 80053; 85027; 85610; 85730; 87070; 93005

== ENCOUNTER 2024-09-25 10:18 | Observation (INO) | payer BC ==
[2024-09-25] MEDS: LACTATED RINGERS 1,000 ML IV SCH (10:50)
[2024-09-25] MEDS: IV FLUID CONTINUATION 1,000 ML IV ONE (10:50)
[2024-09-25] MEDS: ACETAMINOPHEN TAB 500 MG TAB PO PRN (10:53)
[2024-09-25] MEDS: oxyCODONE ER 10 MG TAB.ER.12H PO PRN (10:54)
[2024-09-25] MEDS: DOCUSATE 100 MG CAP PO PRN (10:54)
[2024-09-25] MEDS: ONDANSETRON 4 MG/2 ML VIAL IVP PRN (10:55)
[2024-09-25] MEDS: FAMOTIDINE 20 MG/2 ML VIAL IVP PRN (10:56)
[2024-09-25] MEDS: KETOROLAC 15 MG/ML 1 ML VIAL IVP PRN (10:56)
[2024-09-25] MEDS: DEXAMETHASONE SOD PHOSPHATE 10 MG/ML 1 ML VIAL IV PRN (10:56)
[2024-09-25] MEDS: MIDAZOLAM 2 MG/2 ML VIAL IV PRN (11:02)
[2024-09-25] MEDS: fentaNYL (PF) 50 MCG/1 ML VIAL IVP ONE (11:03)
--- NOTE | 2024-09-25 11:23 | P.ANPRN ---
Procedure Note - Anesthesia - Nerve Block Performed Right Kendrack Single Time Out Performed: Yes Date of Procedure: 09/25/24 Procedure Start Time: 11:02 Procedure Stop Time: 11:07 Location of Patient: PreOp Indication: Acute Post-Operative Pain, Analgesia, Requested by Surgeon Sedation Type: Sedate with meaningful contact maintained Preparation: Sterile Prep Position: Left Lateral Catheter: None Needle Types: Pajunk Needle Gauge: 21 Ultrasound used to visualize needle placement: Yes Ultrasound used to observe medication spread: Yes Injectate: 0.5% Ropivacaine (see comment for volume) (Ropiv 20ml+[id number]) Blood Aspirated: No Pain Paresthesia on Injection Noted: No Resistance on Injection: Normal Image Stored and Saved: Yes Events: Uneventful and Well Tolerated
--- NOTE | 2024-09-25 11:24 | P.ANPRN ---
Procedure Note - Anesthesia - Nerve Block Performed Right Adductor Canal Single Time Out Performed: Yes Date of Procedure: 09/25/24 Procedure Start Time: 11:07 Procedure Stop Time: 11:12 Indication: Acute Post-Operative Pain, Analgesia, Requested by Surgeon Sedation Type: Sedate with meaningful contact maintained Preparation: Sterile Prep Position: Supine Catheter: None Needle Types: Pajunk Needle Gauge: 21 Ultrasound used to visualize needle placement: Yes Ultrasound used to observe medication spread: Yes Injectate: 0.5% Ropivacaine (see comment for volume) ([id number]+Decadron 4mg) Blood Aspirated: No Pain Paresthesia on Injection Noted: No Resistance on Injection: Normal Image Stored and Saved: Yes Events: Uneventful and Well Tolerated
[2024-09-25] MEDS ORDERED: HYDROmorphone (PF) 1 MG/ML ONE (12:41)
[2024-09-25] MEDS ORDERED: ROPIVACAINE 5 MG/ML 30 ML VIAL ONE (12:41)
[2024-09-25] MEDS ORDERED: fentaNYL (PF) 50 MCG/ML 2 ML AMP ONE (12:41)
[2024-09-25] MEDS ORDERED: PROPOFOL 10 MG/ML 20 ML VIAL IV ONE (12:41)
[2024-09-25] MEDS ORDERED: TRANEXAMIC 1,000 MG/100ML-NACL PREMIX BAG ONE (12:41)
[2024-09-25] MEDS ORDERED: ROCURONIUM 10 MG/ML (5 ML VIAL) IV ONE (12:41)
[2024-09-25] MEDS ORDERED: SUGAMMADEX SODIUM 100 MG/ML SYR IV ONE (12:41)
[2024-09-25] MEDS ORDERED: KETAMINE HCL IN 0.9 % NACL 50 MG/5 ML SYRINGE ONE (12:41)
[2024-09-25] MEDS ORDERED: PHENYLEPHRINE-0.9% NACL SYG 1,000 MCG/10 ML SYRINGE ONE (12:41)
[2024-09-25] MEDS ORDERED: DEXAMETHASONE SOD PHOSPHATE 4 MG/ML 1 ML VIAL ONE (12:41)
[2024-09-25] MEDS ORDERED: MIDAZOLAM 2 MG/2 ML VIAL ONE (12:41)
[2024-09-25] MEDS ORDERED: SUCCINYLCHOLINE CHLORIDE 200 MG/10 ML VIAL IV ONE (12:41)
[2024-09-25] MEDS ORDERED: LIDOCAINE 1% INJ 10MG/ML (20 ML MDV) ONE (12:41)
[2024-09-25] MEDS: ceFAZolin 3 GM in SODIUM CHLORIDE 0.9% 100 ML IVPB PRN (12:46)
[2024-09-25] MEDS: ROPIVACAINE/EPI/CLONIDINE/KET 50 ML SYRINGE MISCELLANE PRN (13:21)
[2024-09-25] MEDS ORDERED: MAGNESIUM HYDROXIDE 2,400 MG/30 ML CUP PO PRN (14:37)
[2024-09-25] MEDS ORDERED: NA PHOS,M-B/NA PHOS,DI-BA 133 ML ENEMA RECTAL PRN (14:37)
[2024-09-25] MEDS ORDERED: ONDANSETRON 4 MG/2 ML VIAL IVP PRN (14:37)
[2024-09-25] MEDS ORDERED: diazePAM 5 MG TAB PO PRN ×2 (14:37)
[2024-09-25] MEDS ORDERED: HYDROmorphone 0.5 MG/0.5 ML SYRINGE IVP PRN (14:37)
[2024-09-25] MEDS ORDERED: NALOXONE 0.4 MG/ML 1 ML VIAL IV PRN (14:37)
[2024-09-25] MEDS ORDERED: bisacodyL 10 MG SUPP RECTAL PRN (14:37)
[2024-09-25] MEDS ORDERED: hydrOXYzine pamoate 25 MG CAP PO PRN (14:37)
[2024-09-25] MEDS ORDERED: HYDROcodone/APAP 5-325MG 1 EACH TAB PO PRN (14:37)
--- NOTE | 2024-09-25 14:37 | P.OP ---
Date of Procedure: 09/25/24 Preoperative Diagnosis: 1. Right knee arthritis with large medial femoral condyle OCD Postoperative Diagnosis: 1. Right knee arthritis with large medial femoral condyle OCD and posterolateral tibia fracture Procedure(s) Performed: 1. Right total knee arthroplasty 2. Computer assisted musculoskeletal navigation using CT/MRI images Implants: 1. Alejandra Triathlon CR Femur Size #6 2. [place] [employer] Elsie Tibial Base Size #6 with 12x50 stem 3. Alejandra Triathlon CS poly Size #6, 9-mm 4. [place] [employer] all poly patella, Size #35 Anesthesia: SILVIANO, regional Surgeon: Wai Arriaza Topper Packer #1: Martin Hickman Estimated Blood Loss (ml): 100 IV fluids (ml): 800 Pathology: none sent Condition: stable Disposition: PACU Indications for Procedure: the patient is a very pleasant 59-year-old male who is well-known to my practice. The patient previously underwent a left total knee replacement for a medial femoral condyle osteochondral defect and did very well. He developed similar symptoms in the right knee. He had x-rays and an MRI which showed a large osteochondral defect in the medial femoral condyle and a subchondral tibia fracture. Having failed nonsurgical treatment and having incapacitating pain he requested proceeding with the total knee replacement. Having previously undergone a left total knee replacement he is well aware of the potential risks and complications as well as the procedure and outcome. I met with the patient preoperatively in the office setting and discussed treatment of their symptomatic knee arthritis. They failed a long course of nonsurgical treatment and elected to proceed with an elective total knee replacement. I discussed the potential risks and complications at length and gave them ample time to ask questions. Risks discussed included: risks from anesthesia, superficial site surgical infection, acute and/or chronic periprosthetic joint infection, delayed wound healing, drainage, wound necrosis, instability, stiffness, stiffness re quiring manipulation and/or revision surgery, damage to local blood vessels or nerves, aseptic loosening of the implants, extensor mechanism issues including disruption, patellar maltracking, avascular necrosis etc., continued or worsened knee pain, generalized dissatisfaction with surgical outcome, need for revision surgery, an inability to regain preinjury level of function, DVT, PE, other medical complications, and possibly loss of life or limb. The patient voiced their understanding that while these are the most common complications other less common complications are possible. They provided both their verbal and written consent to go forward with surgery. Operative Findings: there was a large 1.5 x 1 cm osteochondral defect in the medial femoral condyle with exposed subchondral bone. There was also a posterior lateral tibial plateau fracture. The bone was friable and removed. Due to this I used a short stem on the tibial component and packed the defect with cement posterior laterally on the tibia. Description of Procedure: The patient was identified in preoperative holding and the correct operative extremity was verified and marked with a marker. I reviewed the consent form with the patient at length. All of their questions were answered. The patient was given a block by anesthesia. They were then brought back to the operating room. They were transferred onto the operating room table where a general anesthetic, preoperative antibiotics, and tranexamic acid were administered by anesthesia. A tourniquet was applied to the proximal aspect of the operative extremity. The contralateral extremity was padded under the heel and secured to the operating room table with a nonsterile blue towel and tape. The ipsilateral arm was carefully draped across the patient's chest and secured with a pillow and foam. A post was applied over the lateral aspect of the ipsilateral thigh and a bolster was placed under the ipsilateral foot. I verified that the operative extremity was stable and the knee was flexed to 90. The operative extremity was then placed in a leg carrasquillo, nonsterile drapes were applied, and the extremity was prepped and draped sterilely in the standard sterile fashion. Prior to starting surgery timeout was performed identifying the correct patient, operative extremity, and procedure. The leg was then elevated, exsanguinated with an Esmarch bandage, and the tourniquet was inflated. An anterior midline incision was made sharply with a scalpel. Once I had dissected deep to the superficial fascial layer medial and lateral flaps were elevated. A medial parapatellar arthrotomy was created. Upon opening the knee joint there were diffuse arthritic changes in all 3 compartments. The anterior horn of the medial meniscus were sharply released and a medial release was performed around the posterior medial corner of the knee to facilitate retractor placement. The fat pad was excised with electrocautery. The patella was found to be severely arthritic and a provisional cut was made with a sagittal saw to facilitate mobilization of the extensor mechanism during the procedure. Remn ants of the ACL and PCL were then excised from the notch. 4 mm pins were then placed within the incision in the medial distal femur and proximal tibia. Arrays were applied to the pins and I verified they were completely tightened. The knee was then registered with the Carnad robot and manipulations in implant position were made to balance the knee and opitmize implant position. Using the Carnad robotic saw all cuts were made in accordance with our plan. After all bony fragments had been removed the cuts were verified with the planar probe. The tibia was then subluxed forward and sized. The knee was brought into flexion and a lamina blow torch burner was placed to allow removal of the meniscal remnants both medially and laterally as well as posterior osteophytes. Local anesthetic was then infiltrated around the joint capsule. Trial implants were then placed within the knee. Range of motion and collateral ligament tension was then evaluated. Adjustments in implant size and position were then made accordingly. Once the knee was felt to be appropriately balanced the Daniel pins were removed. The patella was then recut, sized, and punched. A trial patellar button was then placed. With the trial components in place, the patella tracked midline. The femur was then drilled and the trial component removed. The trial tibial component was then appropriately rotated, pinned, and prepared for the keel. All trial components were then removed from the knee. The knee was thoroughly irrigated with pulsatile lavage. Cement was prepared via vacuum mixing in a bowl on the back table. I then hand pressurized cement into the femur and tibia and placed the implants beginning with the tibial base tray and poly liner, femoral component, and finally the patellar button. All extruded cement was removed including from the pin sites. Once the cement had hardened the knee was evaluated one final time with the final polyethylene liner in place. The knee had full extension and flexion and felt stable to varus and valgus stress throughout the arc of motion. The tourniquet was released and with the tourniquet down the patella tracked midline. All bleeders were controlled with electrocautery. The knee was then soaked for 3 minutes with a dilute Betadine soak. The knee was thoroughly irrigated using 3 L of sterile saline and pulsatile lavage. The extensor mechanism was then reapproximated using pop off Vicryl sutures followed by a running barbed suture. The knee was then closed in layers with a 0 strata fix for the deep fascial layer, 2-0 strata fix for the superficial subcutaneous layer and Monocryl and Steri-Strips for the skin. A sterile dressing was applied. I verified that all instrument, sponge, and sharp counts were correct. The patient was then transferred off the operating room table, extubated, and brought to recovery having tolerated the procedure well. Martin Hickman PA-C was required as a skilled administrative services assistant for patient positioning, draping, exposure, retraction, closure of wound and application of dressing PLAN: The patient can weight-bear as tolerated on the operative extremity. DVT prophylaxis with aspirin 81 mg twice a day based on preoperative risk stratification. Internal medicine for perioperative medical management. 2 doses of post-operative antibiotics. Physical therapy for gait training. Follow-up in the office in 2 weeks for wound check and x-rays of the knee including an AP and lateral.
[2024-09-25] MEDS: LACTATED RINGERS 1,000 ML IV ONE (14:57)
[2024-09-25] MEDS: HYDROmorphone 0.5 MG/0.5 ML SYRINGE IVP PRN (15:11)
--- NOTE | 2024-09-25 15:50 | XR ---
EXAMINATION TYPE: XR knee limited RT DATE OF EXAM: 09/25/2024 3:39 PM COMPARISON: None CLINICAL INDICATION: Male, 59 years old with history of Evaluation for Postop abnormality and alignme nt; PHH, pain TECHNIQUE: XR knee limited RT XX views submitted. FINDINGS: Status post total knee arthroplasty changes with hardware in appropriate alignment and in tact. No evidence of fracture. Subcutaneous lucencies and lucencies within the joint consistent with surgical changes. IMPRESSION: Status post total knee arthroplasty changes with hardware intact and appropriate alignment. No fractu res identified. [facility], , 09/25/2024 3:48 PM
--- NOTE | 2024-09-25 17:15 | P.CONS ---
History of Present Illness - Reason for Consult Consult date: 09/25/24 med management - Chief Complaint right knee pain - History of Present Illness Jules is a 59-year-old male with a past medical history of prior left knee arthroplasty, primary hypertension and gout. The patient had a left knee arthroplasty performed in January 2024. She reports thereafter he started having right knee pain. Given the continued pain he had elected to proceed with a right knee arthroplasty. Surgery was uneventful today and he was seen in his MedSurg room thereafter with family at bedside. EBL was noted be 100 cc. Of note the patient does report that he does have a high opioid tolerance and was previously on [place]dale tens. He reports that he had trialed Percocet however he felt as if the [place]'s were more effective. Review of Systems Constitutional: Reports as per HPI Past Medical History Past Medical History: Hyperlipidemia, Hypertension, Musculoskeletal Disorder, Osteoarthritis (OA) Additional Past Medical History / Comment(s): RLS, Gout, DDD, carpal tunnel right wrist, hx sciticia, toes go numb. History of Any Multi-Drug Resistant Organisms: None Reported Past Surgical History: Hernia Repair, Joint Replacement, Orthopedic Surgery Additional Past Surgical History / Comment(s): Umbilical hernia repair, right elbow surgery, left knee replacement. Past Anesthesia/Blood Transfusion Reactions: Motion Sickness, Postoperative Nausea & Vomiting (PONV) Smoking Status: Former smoker - Past Family History Mother Family Medical History: No Reported History Father Family Medical History: Cancer Medications and Allergies Home Medications Medication Instructions Recorded Confirmed Type Diclofenac Sodium [Voltaren] 75 mg PO BID 01/22/24 09/23/24 History Irbesartan/Hydrochlorothiazide 1 each PO QAM 01/22/24 09/23/24 History [Irbesartan-Hctz 300-12.5 mg Tb] Potassium Gluconate 99 mg PO DAILY 01/22/24 09/23/24 History Venlafaxine HCl [Effexor XR] 150 mg PO QAM 01/22/24 09/23/24 History allopurinoL [Zyloprim] 300 mg PO QAM 01/22/24 09/23/24 History tadalafiL [Cialis] 20 mg PO DAILY 01/22/24 09/23/24 History Ascorbic Acid [Vitamin C] 1,000 mg PO DAILY 09/23/24 09/23/24 History Ergocalciferol [Vitamin D2 (1250 1,250 mcg PO Q3D 09/23/24 09/23/24 History Mcg = 50804 Iu)] Fenofibrate Nanocrystallized 145 mg PO DAILY 09/23/24 09/23/24 History [Fenofibrate] HYDROcodone/APAP 10-325MG [[place] 1 tab PO QID PRN 09/23/24 09/23/24 History 10-325] Magnesium 250 mg PO DAILY 09/23/24 09/23/24 History rOPINIRole HCL 1 mg PO HS 09/23/24 09/23/24 History Aspirin 81 mg PO BID #60 tab 09/25/24 Rx HYDROcodone/APAP 10-325MG [[place] 1 each PO Q6H PRN #32 tab 09/25/24 Rx 10] Omeprazole 20 mg PO DAILY #30 tab 09/25/24 Rx Ondansetron [Zofran] 4 mg PO Q6HR PRN #30 tab 09/25/24 Rx Sennosides-Docusate Sodium 1 tab PO BID PRN #60 tablet 09/25/24 Rx [Senokot-S] Allergies Allergy/AdvReac Type Severity Reaction Status Date / Time erythromycin base Allergy Rash/Hives Verified 09/25/24 10:34 tetracycline Allergy Rash/Hives Verified 09/25/24 10:34 Physical Exam Vitals: Vital Signs Temp Pulse Resp BP Pulse Ox 09/25/24 16:15 97.3 F L 88 18 146/74 95 09/25/24 16:00 81 16 136/79 96 09/25/24 15:45 79 16 131/69 96 09/25/24 15:30 82 16 126/69 95 09/25/24 15:15 87 14 123/59 97 09/25/24 15:00 98.2 F 90 14 124/58 97 09/25/24 11:15 91 16 128/57 94 L 09/25/24 10:42 97.4 F L 110 H 16 131/67 95 Intake and Output 09/25/24 09/25/24 09/25/24 06:59 14:59 22:59 Intake Total 1100 400 Output Total 100 Balance 1000 400 Intake: IV 1100 400 Output: Estimated Blood Loss 100 Other: Weight 122.4 kg General: non toxic, no distress, male pleasant Derm: warm, dry Head: atraumatic, normocephalic, symmetric Eyes: EOMI, no lid lag, anicteric sclera, pupils equal round reactive to light ENT: Nose and ears atraumatic, no thrush, no pharyngeal erythema Neck: No thyromegaly, no cervical lymphadenopathy, trachea midline, supple Mouth: no lip lesion, mucus membranes moist Cardiovascular: S1S2 reg, no murmur, positive posterior tibial pulse bilateral, no edema, capillary refill less than 2 seconds Lungs: clear to ascultation bilateral, no ronchi, no rales, no wheeze, no accessory muscle use Abdominal: soft, nontender to palpation, no guarding, no appreciable organomegaly, normal bowel sounds Ext: left knee surgical scar. right knee with vertical surgical dressing Neuro: Moving all extremity spontaneously Psych: Alert, oriented, appropriate affect - Constitutional General appearance: no acute distress - EENT Eyes: EOMI - Neck Neck: no lymphadenopathy - Gastrointestinal General gastrointestinal: no organomegaly, soft, no tenderness Assessment and Plan Assessment: #) Right knee DJD s/p right knee arthoplasty on 09/25. Nerve block is currently dissipating. Continue aspirin 81 mg twice daily for DVT prophylaxis. Pain control with hydrocodone 5-10 mg. Continue as needed IV hydromorphone for breakthrough pain. PT evaluation tomorrow. #) Prior left knee arthoplasty in 09/26 #) Hx of chronic opioid use and was on hydrocodone/acemtainophen. May require higher doses of opioids #) Primary htn- continue irebsartan/hctz #) Gout- Continue allopurnil 300 mg daily #) Hld- continue fenofibrate 160 mg daily #) major depression- continue effexor 150 mg daily #) Remote hx of tobacco use- continued tobacco cessation. dispo: med/surge. hopefully home tomorrow after PT evaluation Time with Patient: Greater than 30
[2024-09-25] MEDS: HYDROmorphone 1 MG/ML 1 ML SYRINGE IVP PRN (17:40)
[2024-09-25] MEDS: ASPIRIN 81 MG PO SCH (20:16)
[2024-09-25] MEDS: SENNOSIDES-DOCUSATE SODIUM 1 EACH TAB PO SCH (20:16)
[2024-09-25] MEDS: HYDROcodone/APAP 10-325MG 1 EACH TAB PO PRN (20:16)
[2024-09-25] MEDS: SODIUM CHLORIDE 0.9% 1,000 ML IV SCH (20:16)
[2024-09-25] MEDS: ceFAZolin 3 GM in SODIUM CHLORIDE 0.9% 100 ML IVPB SCH (20:17)
[2024-09-26] MEDS: HYDROmorphone 0.5 MG/0.5 ML SYRINGE IVP PRN (05:20)
[2024-09-26] MEDS ORDERED: NON FORMULARY DRUG (Irbesartan/Hydrochlorothiazide [Irbesartan-Hctz 300-12.5 Mg Tb] 1 EACH PO SCH (09:00)
[2024-09-26] MEDS: VENLAFAXINE HCL ER 150 MG CAP PO SCH (09:07)
[2024-09-26] MEDS: MELOXICAM 7.5 MG TAB PO SCH (09:07)
[2024-09-26] MEDS: hydroCHLOROthiazide 12.5 MG CAP PO SCH (09:07)
[2024-09-26] MEDS: allopurinoL 300 MG TAB PO SCH (09:07)
[2024-09-26] MEDS: FENOFIBRATE 160 MG TAB PO SCH (09:07)
[2024-09-26] MEDS: LOSARTAN 50 MG TAB PO SCH (09:08)
--- NOTE | 2024-09-26 09:45 | P.PN ---
Subjective Progress Note Date: 09/26/24 patient is doing relatively well this morning. He does complain of moderate to severe pain in his knee. He denies chest pain or shortness of breath. Objective - Vital Signs Vital signs: Vital Signs Temp 98.4 F 09/26/24 07:14 Pulse 104 H 09/26/24 07:14 Resp 18 09/26/24 07:14 BP 152/74 09/26/24 07:14 Pulse Ox 95 09/26/24 07:14 FiO2 Intake & Output 09/25/24 09/26/24 09/26/24 18:59 06:59 18:59 Intake Total 1500 Output Total 100 Balance 1400 Weight 122.4 kg Intake: IV 1500 Output: Estimated Blood Loss 100 Other: Voiding Method Toilet # Voids 1 # Bowel Movements 1 - Exam the patient is sitting up at bedside. He is alert and able to answer questions. A focused exam of the right lower extremity was conducted. His surgical dressing is intact. His thigh and calf are swollen but compressible. He is able to actively extend his knee. Motor and sensory function are intact in the foot. Assessment and Plan Assessment: postoperative day #1 status post right total knee replacement Chronic pain Chronic use of opioid pain medications Plan: 1. Weightbearing as tolerated on the operative extremity. Up with assistance. 2. DVT prophylaxis with aspirin 81 mg twice a day 3. Physical therapy for gait training and mobilization 4. Internal medicine for perioperative medical management 5. PT for gait training 6. Disposition: the patient is complaining of moderate to severe pain in his knee. We discussed that this is expected due to his chronic use of opioid pain medication. He understands the pain control will be hard the first several days due to his low pain tolerance from chronic opioid use. We will continue IV pain medication for severe breakthrough pain today. We will also start Percocet. We will keep him an additional day for pain control and plan for discharge home tomorrow.
[2024-09-26 09:59] LABS: Basophils # (A) 0.02 X 10*3/uL (0.00-0.10); Basophils % (A) 0.1 %; Eosinophils # (A) 0 X 10*3/uL (0.04-0.35); Eosinophils % (A) 0 %; HCT 39.4 % (39.6-50.0); HGB 12.7 g/dL (13.0-17.0); Lymphocytes # (A) 0.68 X 10*3/uL (0.90-5.00); Lymphocytes % (A) 3.5 %; MCH 32.6 pg (27.0-32.0); MCHC 32.2 g/dL (32.0-37.0); MCV 101.3 FL (80.0-97.0); Monocytes # (A) 1.07 X 10*3/uL (0.20-1.00); Monocytes % (A) 5.5 %; NRBC Per 100 WBC 0 X 10*3/uL (0.00-0.01); Neutrophils # (A) 17.75 X 10*3/uL (1.80-7.70); Neutrophils % (A) 90.3 %; Platelet Count 395 X 10*3/uL (140-440); RBC 3.89 X 10*6/uL (4.40-5.60); RDW 13.6 % (11.5-14.5); WBC 19.63 X 10*3/uL (4.50-10.00)
[2024-09-26 10:24] LABS: BUN/Creat Ratio 23.57 Ratio (12.00-20.00); Chloride 102 mmol/L (96-109); Glucose 121 mg/dL (70-110); Sodium 138 mmol/L (135-145)
[2024-09-26 10:25] LABS: Calcium 9.6 mg/dL (8.7-10.3); Carbon Dioxide 18.4 mmol/L (21.6-31.8)
[2024-09-26] MEDS: MULTIVITAMINS, THERA 1 EACH TAB PO SCH (11:03)
[2024-09-26] MEDS: oxyCODONE-APAP 7.5-325MG 1 EACH TAB PO PRN (11:03)
--- NOTE | 2024-09-26 11:11 | P.PN ---
Subjective Progress Note Date: 09/26/24 Principal diagnosis: Jules is a 59-year-old male who is present to the hospital for an elective right knee arthroplasty on September 2509/26-he reports a significant amount of right knee pain after his nerve block had dissipated. He reports that he is in significant amount of pain. He reports that he would not be able to work with therapy today. Objective - Vital Signs Vital signs: Vital Signs Temp 98.4 F 09/26/24 07:14 Pulse 104 H 09/26/24 07:14 Resp 18 09/26/24 07:14 BP 152/74 09/26/24 07:14 Pulse Ox 95 09/26/24 07:14 FiO2 Intake & Output 09/25/24 09/26/24 09/26/24 18:59 06:59 18:59 Intake Total 1500 Output Total 100 Balance 1400 Weight 122.4 kg Intake: IV 1500 Output: Estimated Blood Loss 100 Other: Voiding Method Toilet # Voids 1 # Bowel Movements 1 - Exam General: non toxic, no distress, male pleasant Derm: warm, dry Head: atraumatic, normocephalic, symmetric Eyes: EOMI, no lid lag, anicteric sclera, pupils equal round reactive to light ENT: Nose and ears atraumatic, no thrush, no pharyngeal erythema Neck: No thyromegaly, no cervical lymphadenopathy, trachea midline, supple Mouth: no lip lesion, mucus membranes moist Cardiovascular: S1S2 reg, no murmur, positive posterior tibial pulse bilateral, no edema, capillary refill less than 2 seconds Lungs: clear to ascultation bilateral, no ronchi, no rales, no wheeze, no accessory muscle use Abdominal: soft, nontender to palpation, no guarding, no appreciable organomegaly, normal bowel sounds Ext: left knee surgical scar. right knee with vertical surgical dressing Neuro: Moving all extremity spontaneously Psych: Alert, oriented, appropriate affect - Labs CBC & Chem 7: 09/26/24 03:52 09/26/24 03:52 Labs: Abnormal Lab Results - Last 24 Hours (Table) 09/26/24 09/26/24 Range/Units 03:52 03:52 WBC 19.63 H (4.50-10.00) X 10*3/uL RBC 3.89 L (4.40-5.60) X 10*6/uL Hgb 12.7 L (13.0-17.0) g/dL Hct 39.4 L (39.6-50.0) % MCV 101.3 H (80.0-97.0) FL MCH 32.6 H (27.0-32.0) pg Immature Gran # 0.11 H (0.00-0.04) X 10*3/uL Neutrophils # 17.75 H (1.80-7.70) X 10*3/uL Lymphocytes # 0.68 L (0.90-5.00) X 10*3/uL Monocytes # 1.07 H (0.20-1.00) X 10*3/uL Eosinophils # 0 L (0.04-0.35) X 10*3/uL Carbon Dioxide 18.4 L (21.6-31.8) mmol/L Anion Gap 17.60 H (4.00-12.00) mmol/L BUN 33.0 H (9.0-27.0) mg/dL Est GFR (CKD-EPI) 57 L (>=60) BUN/Creatinine Ratio 23.57 H (12.00-20.00) Ratio Glucose 121 H (70-110) mg/dL Assessment and Plan Assessment: #) Right knee DJD s/p right knee arthoplasty on 09/25. Continue aspirin 81 mg twice daily for DVT prophylaxis. Pain control with meloxicam 7.5 mg daily, [place], Percocet. Judicious usage of as needed IV hydromorphone however would like to attempt to wean down. Has not quite yet worked with therapy today and would like him to work with therapy hopefully later today if pain is tolerable #) Prior left knee arthoplasty in 09/26 #) Hx of chronic opioid use and was on hydrocodone/acemtainophen medically. I suspect his opioid tolerance is high and he may require higher than usual dose of pain medication #) Primary htn- continue irebsartan/hctz #) Gout- Continue allopurnil 300 mg daily #) Hld- continue fenofibrate 160 mg daily #) major depression- continue effexor 150 mg daily #) Remote hx of tobacco use- continued tobacco cessation. dispo: med/surge. I would recommend monitoring for another day in the hospital and assess his pain control and mobility. Will need to be seen by PT prior to discharge home. Time with Patient: Greater than 30
[2024-09-27] MEDS: TEMAZEPAM 15 MG CAP PO PRN (00:15)
--- NOTE | 2024-09-27 08:58 | P.PN ---
Subjective Progress Note Date: 09/27/24 Principal diagnosis: Post op Right TKA This is a 59 year-old male post right total knee arthroplasty. This is post-op day 2. The patient was evaluated at the bedside today. The patient denies nausea, vomiting, abdominal pain, shortness of breath, and chest pain this morning. He states his pain is not well controlled at this time on Percocet 7.5 and is requiring Dilaudid still. The patient has been up with physical therapy and ambulates to the bathroom. He states that he is still unable to bear weight onto the right leg due to severe pain. Objective - Vital Signs Vital signs: Vital Signs Temp 97.6 F 09/27/24 07:35 Pulse 111 H 09/27/24 07:35 Resp 20 09/27/24 07:35 BP 144/71 09/27/24 07:35 Pulse Ox 97 09/27/24 07:35 FiO2 Intake & Output 09/26/24 09/27/24 09/27/24 18:59 06:59 18:59 Other: Voiding Method Toilet # Voids 3 3 - Exam The patient does not appear in acute distress. Alert and orientated x3. Dressi ng is clean dry and intact. Incision appears fine with no erythema or active drainage. Calf is soft and nontender. Good foot and ankle motion without difficulty. Sensation and circulatory status is intact. - Labs CBC & Chem 7: 09/26/24 03:52 09/26/24 03:52 Labs: Abnormal Lab Results - Last 24 Hours (Table) 09/26/24 09/26/24 Range/Units 03:52 03:52 WBC 19.63 H (4.50-10.00) X 10*3/uL RBC 3.89 L (4.40-5.60) X 10*6/uL Hgb 12.7 L (13.0-17.0) g/dL Hct 39.4 L (39.6-50.0) % MCV 101.3 H (80.0-97.0) FL MCH 32.6 H (27.0-32.0) pg Immature Gran # 0.11 H (0.00-0.04) X 10*3/uL Neutrophils # 17.75 H (1.80-7.70) X 10*3/uL Lymphocytes # 0.68 L (0.90-5.00) X 10*3/uL Monocytes # 1.07 H (0.20-1.00) X 10*3/uL Eosinophils # 0 L (0.04-0.35) X 10*3/uL Carbon Dioxide 18.4 L (21.6-31.8) mmol/L Anion Gap 17.60 H (4.00-12.00) mmol/L BUN 33.0 H (9.0-27.0) mg/dL Est GFR (CKD-EPI) 57 L (>=60) BUN/Creatinine Ratio 23.57 H (12.00-20.00) Ratio Glucose 121 H (70-110) mg/dL Assessment and Plan (1) Primary osteoarthritis of right knee Current Visit: Yes Status: Acute Code(s): M17.11 - UNILATERAL PRIMARY OSTEOARTHRITIS, RIGHT KNEE SNOMED Code(s): 624655761089520 (2) Status post right knee replacement Current Visit: Yes Status: Acute Code(s): Z96.651 - PRESENCE OF RIGHT ARTIFICIAL KNEE JOINT SNOMED Code(s): 2002195806777 Plan: 1. Continue pain control with Percocet, wean Dilaudid use. 2. Anticoagulation with Aspirin 3. Continue physical therapy and ambulation 4. Anticipate discharge home likely tomorrow.
--- NOTE | 2024-09-27 09:54 | P.PN ---
Subjective Progress Note Date: 09/26/24 Principal diagnosis: Jules is a 59-year-old male who is present to the hospital for an elective right knee arthroplasty on September 2509/26-he reports a significant amount of right knee pain after his nerve block had dissipated. He reports that he is in significant amount of pain. He reports that he would not be able to work with therapy today. Objective - Vital Signs Vital signs: Vital Signs Temp 98.4 F 09/26/24 07:14 Pulse 104 H 09/26/24 07:14 Resp 18 09/26/24 07:14 BP 152/74 09/26/24 07:14 Pulse Ox 95 09/26/24 07:14 FiO2 Intake & Output 09/25/24 09/26/24 09/26/24 18:59 06:59 18:59 Intake Total 1500 Output Total 100 Balance 1400 Weight 122.4 kg Intake: IV 1500 Output: Estimated Blood Loss 100 Other: Voiding Method Toilet # Voids 1 # Bowel Movements 1 - Exam General: non toxic, no distress, male pleasant Derm: warm, dry Head: atraumatic, normocephalic, symmetric Eyes: EOMI, no lid lag, anicteric sclera, pupils equal round reactive to light ENT: Nose and ears atraumatic, no thrush, no pharyngeal erythema Neck: No thyromegaly, no cervical lymphadenopathy, trachea midline, supple Mouth: no lip lesion, mucus membranes moist Cardiovascular: S1S2 reg, no murmur, positive posterior tibial pulse bilateral, no edema, capillary refill less than 2 seconds Lungs: clear to ascultation bilateral, no ronchi, no rales, no wheeze, no accessory muscle use Abdominal: soft, nontender to palpation, no guarding, no appreciable organomegaly, normal bowel sounds Ext: left knee surgical scar. right knee with vertical surgical dressing Neuro: Moving all extremity spontaneously Psych: Alert, oriented, appropriate affect Objective - Vital Signs Vital signs: Vital Signs Temp 97.6 F 09/27/24 07:35 Pulse 111 H 09/27/24 07:35 Resp 20 09/27/24 07:35 BP 144/71 09/27/24 07:35 Pulse Ox 97 09/27/24 07:35 FiO2 Intake & Output 09/26/24 09/27/24 09/27/24 18:59 06:59 18:59 Other: Voiding Method Toilet # Voids 3 3 - Labs CBC & Chem 7: 09/26/24 03:52 09/26/24 03:52 Labs: Abnormal Lab Results - Last 24 Hours (Table) 09/26/24 09/26/24 Range/Units 03:52 03:52 WBC 19.63 H (4.50-10.00) X 10*3/uL RBC 3.89 L (4.40-5.60) X 10*6/uL Hgb 12.7 L (13.0-17.0) g/dL Hct 39.4 L (39.6-50.0) % MCV 101.3 H (80.0-97.0) FL MCH 32.6 H (27.0-32.0) pg Immature Gran # 0.11 H (0.00-0.04) X 10*3/uL Neutrophils # 17.75 H (1.80-7.70) X 10*3/uL Lymphocytes # 0.68 L (0.90-5.00) X 10*3/uL Monocytes # 1.07 H (0.20-1.00) X 10*3/uL Eosinophils # 0 L (0.04-0.35) X 10*3/uL Carbon Dioxide 18.4 L (21.6-31.8) mmol/L Anion Gap 17.60 H (4.00-12.00) mmol/L BUN 33.0 H (9.0-27.0) mg/dL Est GFR (CKD-EPI) 57 L (>=60) BUN/Creatinine Ratio 23.57 H (12.00-20.00) Ratio Glucose 121 H (70-110) mg/dL Assessment and Plan Assessment: Assessment and Plan Assessment: #) Right knee DJD s/p right knee arthoplasty on 09/25. Continue aspirin 81 mg twice daily for DVT prophylaxis. Pain control with meloxicam 7.5 mg daily, [place], Percocet. Judicious usage of as needed IV hydromorphone however would like to attempt to wean down. Has not quite yet worked with therapy today and would like him to work with therapy hopefully later today if pain is tolerable #) Prior left knee arthoplasty in 09/26 #) Hx of chronic opioid use and was on hydrocodone/acemtainophen medically. I suspect his opioid tolerance is high and he may require higher than usual dose of pain medication #) Primary htn- continue irebsartan/hctz #) Gout- Continue allopurnil 300 mg daily #) Hld- continue fenofibrate 160 mg daily #) major depression- continue effexor 150 mg daily #) Remote hx of tobacco use- continued tobacco cessation. 09/27 Patient seen and examined at bedside Orthopedics PA also at bedside Patient states having significant pain in his right knee status post arthroplasty Was able to ambulate with it with physical therapy yesterday although did have pain afterwards which is expected He has severe degenerative joint disease of the right knee and states has had fractures there in the past continue Pain regimen Wean patient off IV pain medication, encourage oral Continue encourage ambulation PT OT as an outpatient Discussed with orthopedics at bedside Time with Patient: Greater than 30
[2024-09-27 10:53] LABS: BUN/Creat Ratio 29.91 Ratio (12.00-20.00); Blood Urea Nitrogen 32.9 mg/dL (9.0-27.0); Carbon Dioxide 23.4 mmol/L (21.6-31.8); Chloride 103 mmol/L (96-109); Glucose 101 mg/dL (70-110); Potassium 4.6 mmol/L (3.5-5.5); Sodium 140 mmol/L (135-145)
[2024-09-27 10:54] LABS: Calcium 9.5 mg/dL (8.7-10.3)
[2024-09-27 19:54] VITALS: RESP 17
[2024-09-28 08:01] VITALS: BP 147/73; PULSE 85; TEMP 98
--- NOTE | 2024-09-28 08:09 | P.DS ---
Providers Attending physician: Wai Arriaza Consults: 09/25/24 14:37 Consult Physician Routine Consulting Provider: Ghazal Hernandez Consult Reason/Comments: post op medical management Do you want consulting provider notified?: Yes Primary care physician: Sulaiman Dunham MD Hospital Course: The patient is a 59-year-old male who failed conservative management of right knee osteoarthritis. On 09/25/2024 the patient presented to preop for scheduled right total knee arthroplasty for severe right knee osteoarthritis with Dr. Arriaza. Patient tolerated the procedure well. Patient was transferred to the orthopedic floor. Patient worked with physical therapy and it was determined the patient was safe to be transferred home. Patient had difficulty with pain control. This morning the patient's pain has been controlled with oral pain medication. Patient will be discharged home with oral Percocet 7.5 and oral diclofenac 75. Patient will have anticoagulation with aspirin 81 mg twice daily. Assessment: postoperative day #3 status post right total knee replacement for severe osteoarthritis Chronic pain Chronic use of opioid pain medications Plan - Discharge Summary Discharge Rx Participant: No New Discharge Prescriptions: New Aspirin 81 mg PO BID #60 tab Sennosides-Docusate Sodium [Senokot-S] 1 tab PO BID PRN #60 tablet PRN Reason: Constipation Diclofenac Sodium [Voltaren] 75 mg PO BID #60 tab Omeprazole 20 mg PO DAILY #30 tab Ondansetron [Zofran] 4 mg PO Q6HR PRN #30 tab PRN Reason: Nausea oxyCODONE HCL/ACETAMINOPHEN [Percocet 7.5-325 mg] 1 tab PO Q6HR PRN #28 tab PRN Reason: Pain No Action tadalafiL [Cialis] 20 mg PO DAILY Venlafaxine HCl [Effexor XR] 150 mg PO QAM Potassium Gluconate 99 mg PO DAILY Irbesartan/Hydrochlorothiazide [Irbesartan-Hctz 300-12.5 mg Tb] 1 each PO QAM rOPINIRole HCL 1 mg PO HS Magnesium 250 mg PO DAILY Ergocalciferol [Vitamin D2 (1250 Mcg = 07517 Iu)] 1,250 mcg PO Q3D Ascorbic Acid [Vitamin C] 1,000 mg PO DAILY allopurinoL [Zyloprim] 300 mg PO QAM Diclofenac Sodium [Voltaren] 75 mg PO BID HYDROcodone/APAP 10-325MG [[place] 10-325] 1 tab PO QID PRN PRN Reason: Pain Fenofibrate Nanocrystallized [Fenofibrate] 145 mg PO DAILY Discharge Medication List Diclofenac Sodium [Voltaren] 75 mg PO BID 01/22/24 [History] Irbesartan/Hydrochlorothiazide [Irbesartan-Hctz 300-12.5 mg Tb] 1 each PO QAM 01/22/24 [History] Potassium Gluconate 99 mg PO DAILY 01/22/24 [History] Venlafaxine HCl [Effexor XR] 150 mg PO QAM 01/22/24 [History] allopurinoL [Zyloprim] 300 mg PO QAM 01/22/24 [History] tadalafiL [Cialis] 20 mg PO DAILY 01/22/24 [History] Ascorbic Acid [Vitamin C] 1,000 mg PO DAILY 09/23/24 [History] Ergocalciferol [Vitamin D2 (1250 Mcg = 79757 Iu)] 1,250 mcg PO Q3D 09/23/24 [History] Fenofibrate Nanocrystallized [Fenofibrate] 145 mg PO DAILY 09/23/24 [History] HYDROcodone/APAP 10-325MG [[place] 10-325] 1 tab PO QID PRN 09/23/24 [History] Magnesium 250 mg PO DAILY 09/23/24 [History] rOPINIRole HCL 1 mg PO HS 09/23/24 [History] Aspirin 81 mg PO BID #60 tab 09/25/24 [Rx] Omeprazole 20 mg PO DAILY #30 tab 09/25/24 [Rx] Ondansetron [Zofran] 4 mg PO Q6HR PRN #30 tab 09/25/24 [Rx] Sennosides-Docusate Sodium [Senokot-S] 1 tab PO BID PRN #60 tablet 09/25/24 [Rx] Diclofenac Sodium [Voltaren] 75 mg PO BID #60 tab 09/28/24 [Rx] oxyCODONE HCL/ACETAMINOPHEN [Percocet 7.5-325 mg] 1 tab PO Q6HR PRN #28 tab 09/28/24 [Rx] Follow up Appointment(s)/Referral(s): Wai Arriaza MD [Medical Doctor] - 2 Weeks Activity/Diet/Wound Care/Special Instructions: 1. Weight-bear as tolerated on your operative extremity unless instructed otherwise. Use a walker or other assistive device to ambulate. 2. Leave surgical dressing in place. If your dressing becomes saturated with blood, there is drainage, or the dressing becomes loose please contact the office. 3. It is okay to shower with your surgical dressing, but do not submerge in water (no hot tubs, bath's, swimming etc.) 4. Make sure to take her blood clot prevention medication as prescribed (aspirin, Eliquis, Xarelto, and Plavix are commonly prescribed medications for blood clot prevention) 5. While taking [place] or Percocet for pain make sure you're taking a stool softener (Colace) and drink lots of water. 6. Keep all follow-up appointments as scheduled. You will usually be seen in 1-2 weeks following surgery. 7. Please contact the office with any questions or concerns [phone] Discharge Disposition: HOME WITH HOME HEALTH SERVICES
[2024-09-28 08:53] LABS: Basophils # (A) 0.05 X 10*3/uL (0.00-0.10); Basophils % (A) 0.4 %; Eosinophils # (A) 0.68 X 10*3/uL (0.04-0.35); Eosinophils % (A) 5.9 %; HCT 35.3 % (39.6-50.0); HGB 10.9 g/dL (13.0-17.0); Lymphocytes # (A) 1.62 X 10*3/uL (0.90-5.00); Lymphocytes % (A) 14.1 %; MCH 31.4 pg (27.0-32.0); MCHC 30.9 g/dL (32.0-37.0); MCV 101.7 FL (80.0-97.0); Mean Platelet Volume 10.3 FL (9.5-12.2); Monocytes # (A) 1.01 X 10*3/uL (0.20-1.00); Monocytes % (A) 8.8 %; NRBC Per 100 WBC 0 X 10*3/uL (0.00-0.01); Neutrophils # (A) 8.04 X 10*3/uL (1.80-7.70); Neutrophils % (A) 70.2 %; Platelet Count 326 X 10*3/uL (140-440); RBC 3.47 X 10*6/uL (4.40-5.60); RDW 13.7 % (11.5-14.5); WBC 11.47 X 10*3/uL (4.50-10.00)
--- NOTE | 2024-09-28 13:37 | P.PN ---
Subjective Progress Note Date: 09/28/24 \Hospital Course: Jules is a 59-year-old male who is present to the hospital for an elective r ight knee arthroplasty on September 25 Patient is recovering well after surgery, he however had significant amount of right knee pain after his nerve block had weaned off, oral pain management was adjusted by Ortho. 09/28 medically stable for discharge Subjective: [] Seen and examined at bedside, complaining of right knee pain, otherwise no complaints Pertinent positives and negatives as discussed above, a complete review of systems was performed and all other systems are negative. Vitals Signs Reviewed. General: [nontoxic], [no distress], [appears at stated age] Derm: [warm], [dry] Head: [atraumatic], [normocephalic], [symmetric] Eyes: [EOMI], [no lid lag], [anicteric sclera] Mouth: [no lip lesion], [mucus membranes moist] Cardiovascular: [S1S2 reg], [no murmur] Lungs: [CTA bilateral], [no rhonchi, no rales] , [no accessory muscle use] Abdominal: [soft], [ nontender to palpation], [no guarding], [no appreciable organomegaly] Ext right knee postop dressing clean and dry, right lower extremity swelling Neuro: [ CN II-XI grossly intact], [no focal neuro deficits] Psych: [Alert], [oriented], [appropriate affect] Assessment and Plan: Right knee osteoarthritis status post right knee arthroplasty 09/25 -Postop management per Ortho, pain control with meloxicam, [place] and Percocet -PT OT -DVT prophylaxis with aspirin 81 mg twice daily -Medically stable for discharge History of left knee arthroplasty History of chronic opioid use Hypertension: Continue irbesartan hydrochlorothiazide Gout: Continue allopurinol Hyperlipidemia: Continue fenofibrate Major depression: Continue Effexor DVT ppx: per ortho Objective - Vital Signs Vital signs: Vital Signs Temp 98.0 F 09/28/24 06:56 Pulse 85 09/28/24 06:56 Resp 17 09/28/24 06:56 BP 147/73 09/28/24 06:56 Pulse Ox 97 09/28/24 06:56 FiO2 Intake & Output 09/27/24 09/28/24 09/28/24 18:59 06:59 18:59 Other: Voiding Method Toilet # Voids 4 1 - Labs CBC & Chem 7: 09/28/24 03:48 09/27/24 05:56 Labs: Abnormal Lab Results - Last 24 Hours (Table) 09/28/24 Range/Units 03:48 WBC 11.47 H (4.50-10.00) X 10*3/uL RBC 3.47 L (4.40-5.60) X 10*6/uL Hgb 10.9 L (13.0-17.0) g/dL Hct 35.3 L (39.6-50.0) % MCV 101.7 H (80.0-97.0) FL MCHC 30.9 L (32.0-37.0) g/dL Immature Gran # 0.07 H (0.00-0.04) X 10*3/uL Neutrophils # 8.04 H (1.80-7.70) X 10*3/uL Monocytes # 1.01 H (0.20-1.00) X 10*3/uL Eosinophils # 0.68 H (0.04-0.35) X 10*3/uL
== END 2024-09-28 12:16 | disposition home or self-care (01) ==
LOC: OR 10:18 → 4SSUR 15:00 → OR 09-28 10:37
PROVIDERS: ADMIT Orthopaedic Surgery; ATTEND Orthopaedic Surgery
DX: M17.11 Unilateral primary osteoarthritis, right knee (principal); M11.261 Other chondrocalcinosis, right knee; I10 Essential (primary) hypertension; E78.5 Hyperlipidemia, unspecified; M10.9 Gout, unspecified; S82.134D Nondisplaced fracture of medial condyle of right tibia, subsequent encounter for closed fracture with routine healing; S72.434D Nondisplaced fracture of medial condyle of right femur, subsequent encounter for closed fracture with routine healing; G89.29 Other chronic pain; E55.9 Vitamin D deficiency, unspecified; G25.81 Restless legs syndrome; F41.9 Anxiety disorder, unspecified; F32.9 Major depressive disorder, single episode, unspecified; Z79.891 Long term (current) use of opiate analgesic; Z87.891 Personal history of nicotine dependence; Z79.1 Long term (current) use of non-steroidal anti-inflammatories (NSAID); Z79.899 Other long term (current) drug therapy; Z88.1 Allergy status to other antibiotic agents; Z86.16 Personal history of COVID-19; Z98.890 Other specified postprocedural states; Z96.652 Presence of left artificial knee joint
CPT/HCPCS: 0055T; 27447; 64447; 64999; 80048; 82607; 85025